=== PATIENT | male | born 1955 | race Caucasian/White ===

== ENCOUNTER 2025-01-26 10:37 | Observation (INO) ==
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
--- NOTE | 2025-01-26 11:50 | XRay Report ---
XR chest 1V portable CLINICAL HISTORY: stroke like symptoms COMPARISON STUDY: None FINDINGS: Heart size and pulmonary vasculature are normal. No effusion, consolidation, or pneumothora x. IMPRESSION: No acute findings. ACT 112: Negative or not required by law. Electronically signed by: Pancho Zamorano M.D. 01/26/2025 11:48 AM
[2025-01-26 12:14] LABS: Hematocrit (blood only) 42.3 % (42.0-52.0); Hemoglobin 14.4 g/dl (14.0-18.0); Mean Corpuscular Hemoglobin 29.3 pg (25.0-34.0); Mean Corpuscular Volume 86.2 fL (80.0-100.0); Mean Platelet Volume 9.7 fL (9.4-12.4); Platelet Count 251 K/uL (130-400); RDW Coefficient of Variation 12.5 % (11.5-14.5); RDW Standard Deviation 39.2 fL (36.4-46.3); Red Blood Count 4.91 M/uL (4.70-6.10); White Blood Count 6.22 K/ul (4.8-10.8)
[2025-01-26 12:20] LABS: Partial Thromboplastin Time 26 Seconds (21-31); Prothrombin Time 10.8 Seconds (9.0-12.0)
[2025-01-26 12:31] LABS: Albumin Level 3.9 gm/dl (3.4-5.0); Bilirubin,Total 0.4 mg/dl (0.2-1.0); Calcium 9.1 mg/dl (8.6-10.3); Magnesium 1.9 mg/dl (1.7-2.4); Potassium 3.7 mmol/L (3.5-5.1)
[2025-01-26 12:35] LABS: Troponin I High Sensitivity 2.7 pg/ml (0-20)
[2025-01-26 12:37] LABS: Albumin Globulin Ratio 1.1 (0.9-2); BUN Creatinine Ratio 16.5 (10-20); Creatinine Clr Calc Pharmacy 91.4 ml/min; Globulin 3.6 gm/dl (2.5-4.0); Total Protein 7.5 gm/dl (6.0-8.3)
[2025-01-26] MEDS: OPTIRAY 320 125ml IV ONE (12:40)
--- NOTE | 2025-01-26 13:05 | CT Scan Report ---
CT angio head w con CLINICAL HISTORY: stroke like symptoms. COMPARISON STUDY: None TECHNIQUE: Unenhanced axial CT scan of the brain is performed. Subsequently, following the IV adminis tration of 112 cc of Optiray, CT angiogram of the brain was performed from the skull base to the vert ex. Images are reviewed in the axial, sagittal, and coronal planes. 3-D MIPS images are created and a ssessed. IV contrast was administered without complication. All measurements were obtained according to NASCET criteria. A dose lowering technique was utilized adhering to the principles of ALARA. CT DOSE: 1243.01 mGy.cm FINDINGS: Distal aspect of the internal carotid and vertebral arteries are widely patent. Basilar art lan is widely patent. The anterior, middle, and posterior cerebral arteries are patent bilaterally. C erebral venous sinuses opacify normally. There is mild paranasal sinus mucosal thickening. IMPRESSION: No significant arterial narrowing or occlusion seen at the brain. ACT 112: Negative or not required by law. The above report was generated using voice recognition software. It may contain grammatical, syntax o r spelling errors. Electronically signed by: Pancho Zamorano M.D. 01/26/2025 1:03 PM
--- NOTE | 2025-01-26 13:05 | CT Scan Report ---
CT SCAN OF THE BRAIN WITHOUT IV CONTRAST CLINICAL HISTORY: Stroke like symptoms. COMPARISON STUDY: None. TECHNIQUE: Unenhanced axial CT scan of the brain was performed from the vertex to the skull base. A dose lowering technique was utilized adhering to the principles of ALARA. FINDINGS: No acute intracranial hemorrhage, midline shift or mass effect is present. Ventricular syst em is unremarkable. Basal cisterns are patent. There are no extra axial collections. White matter hyp odensities suggest small vessel disease. There are no findings to suggest acute dural sinus thrombosi s or acute territorial infarct. A few subcentimeter hypodensities within the bilateral basal ganglia are probably chronic. A right temporal craniotomy is noted. There is a right frontal jimbo hole. There are no calvarial fractures. Small air-fluid levels within the maxillary sinuses are present. There i s moderate ethmoid sinus mucosal thickening. IMPRESSION: No acute intracranial findings. ACT 112: Negative or not required by law. Electronically signed by: Jaun Smalls M.D. 01/26/2025 1:04 PM
--- NOTE | 2025-01-26 13:10 | CT Scan Report ---
CT angio neck with con CLINICAL HISTORY: stroke like symptoms. COMPARISON STUDY: None TECHNIQUE: Following the IV administration of 112 of Optiray, CT angiogram of the neck was performed from the aortic arch to the skull base. Images are reviewed in the axial, sagittal, and coronal plane s. 3-D MIPS images are created and assessed. IV contrast was administered without complication. All m easurements were calculated based on NASCET criteria. A dose lowering technique was utilized adherin g to the principles of ALARA. FINDINGS: Mixed calcified and noncalcified plaque at the right carotid bulb causes less than 50% narr owing proximal right internal carotid artery. No significant narrowing or occlusion seen at the commo n or internal carotid arteries bilaterally. No significant narrowing or occlusion seen at the vertebr al arteries bilaterally. There are moderate degenerative changes at the cervical spine. IMPRESSION: No significant arterial narrowing or occlusion seen at the neck. ACT 112: Negative or not required by law. The above report was generated using voice recognition software. It may contain grammatical, syntax o r spelling errors. Electronically signed by: Pancho Zamorano M.D. 01/26/2025 1:08 PM
[2025-01-26] MEDS: ALBUT/IPRATROP 3MG/0.5MG NEB 3 ML VIAL NEB STA (13:38)
--- NOTE | 2025-01-26 15:45 | History & Physical Report ---
Date of Service January 26, 2025 Assessment & Plan (1) Stroke-like symptom: (2) Closed head injury: Plan 69-year-old male with strokelike symptoms consisting of mild dysarthria and right facial drooping that are now resolving. Head CT scan on admission was negative for hemorrhage. Head and neck CTA are unremarkable. Brain MRI scan is pending. He has been acceptably hypertensive on admission but takes no current medications. Aspirin has been ordered # Strokelike symptoms admission head CT scan negative for bleeding. Brain MRI scan pending. Aspirin has been ordered. Head and neck CTA negative. Observation with telemetry. Supportive care # History of closed head injuries-occurred in the past. The patient stated he had a recent brain MRI scan done at an outside hospital. Those results are not available to me at this time. #Dispositionhopeful discharge tomorrow, January 27, on low-dose aspirin if brain MRI scan is negative for acute CVA and he is asymptomatic History of Present Illness Chief Complaint: Strokelike symptoms Primary Care Provider: Will Cruz 69-year-old white male with a past history of closed head injuries. His states he woke this morning, January 26, with mild dysarthria and what appeared to be a right facial droop. He came to our ED for evaluation since he was camping at [facility]. He is from out of town. Stat head CT scan was negative for bleeding. Head and neck CTA was negative for any obstruction. Blood pressure was slightly elevated on admission but acceptable and EKG is unremarkable with normal sinus rhythm. Brain brain MRI scan is ordered and pending. His symptoms are already resolving and he is alert and oriented at the time of my examination in no acute distress. His is at the bedside. He will be placed in observation status with telemetry for further monitoring Allergies Allergy/AdvReac Type Severity Reaction Status Date / Time red (food color) Allergy Severe Hives, Unverified 01/26/25 14:59 labored breathing, chest congestion red dye Allergy Severe Hives, Unverified 01/26/25 14:59 labored breathing, chest congestion Home Medications Medication Instructions Recorded Confirmed Type fluticasone furoate 200 1 inh inhalation QAM 01/26/25 01/26/25 History mcg-vilanterol 25 mcg/dose inhalation powder (Breo Ellipta) fluticasone propionate 50 1 spray intranasal BID PRN Allergy 01/26/25 01/26/25 History mcg/actuation nasal Symptoms spray,suspension loratadine 10 mg tablet (Claritin) 10 mg PO HS 01/26/25 01/26/25 History omeprazole 20 mg capsule,delayed 20 mg PO DAILYBB 01/26/25 01/26/25 History release pramipexole 0.25 mg tablet 0.5 mg PO HS 01/26/25 01/26/25 History Past Med/Surg History Problem List (Updated 01/26/25 @ 15:50 by Clive Chavez MD) Closed head injury Stroke-like symptom Social History Smoking Status: Never smoker Preferred Language: Maltese Feels Safe at Home: Yes Review of Systems 2 Review of Systems: Constitutionalno fever or chills ENTno blurred vision, no double vision, no epistaxis, no sore throat Respiratoryno cough, no wheezing, no shortness of breath Cardiacno palpitations, no chest pain, no syncope Ameya nausea, vomiting, diarrhea, melena, hematochezia GUno urinary retention, no urinary incontinence, no dysuria, no hematuria Musculoskeletalno joint pain, no muscle tenderness Skinno bruising, no rashes, no pruritus Neurono isolated weakness, no paresthesia. Mild dysarthria and mild right facial droop per Psychno depression, no anxiety Physical Exam 2 Physical Exam: General-alert and oriented x3, no fever, no chills HEENT-head atraumatic and normocephalic, pupils equal and reactive to light, extraocular muscles intact Neck-no lymphadenopathy or thyromegaly, trachea midline Chest-clear to auscultation. No rales, wheezing or rhonchi Cardiac-regular rate and rhythm, normal S1 and S2 Abdomen-normal bowel sounds, no hepatosplenomegaly Extremities-no cyanosis, clubbing, or edema Neuro-cranial nerves II through XII intact, motor and sensory function within normal limits, strength symmetrical with no apparent focal deficits. He continues to have very mild dysarthria however. No apparent facial droop however Psych-normal affect, normal mood Results & Data Results & Data Vital Signs (Past 12 Hours) Vital Signs Temp Pulse Pulse Resp BP BP Pulse Ox 01/26/25 15:00 78 19 163/100 H 97 01/26/25 13:37 70 15 187/144 H 97 01/26/25 11:28 75 01/26/25 11:24 73 12 95 01/26/25 11:24 95 01/26/25 11:08 98 01/26/25 10:42 81 16 153/98 H 98 01/26/25 10:42 98 01/26/25 10:42 36.7 C 81 16 153/98 H 97 O2 Del Method 01/26/25 15:00 Room Air 01/26/25 13:37 Room Air 01/26/25 11:28 01/26/25 11:24 Room Air 01/26/25 11:24 Room Air 01/26/25 11:08 Room Air 01/26/25 10:42 Room Air 01/26/25 10:42 Room Air 01/26/25 10:42 Room Air Laboratory Results 01/26/25 10:45 01/26/25 10:45 Code Status & VTE Plan Code Status Full code PG Care Time/CCT Total # of Minutes Spent Total Time Spent with Patient: Total time spent is greater than 50% in coordination of care (as documented) at patient's floor/unit and/or counseling patient: Coding Level of Care Code 51016 INT INP/OBS CARE 3/75MIN Diagnoses Stroke-like symptom R29.90 Closed head injury S09.90XA
[2025-01-26] MEDS: ASPIRIN CHEW 324 MG PO STA (16:19)
--- NOTE | 2025-01-26 17:45 | Magnetic Resonance Report ---
MRI BRAIN WITHOUT CONTRAST TECHNIQUE: An MRI examination of the brain was performed utilizing sagittal and axial T1-weighted images as well as axial T2-weighted, FLAIR, gradient echo and diffusion-weighted images. INDICATION: Stroke. Slurred speech. COMPARISON: No comparison examination is available for viewing in our system. FINDINGS: There are scattered acute to subacute infarct in the right MCA territory distribution involving the right insular cortex, right frontoparietal cortices. No significant mass effect or evidence of hemorrhagic transformation detected at this time. Advanced chronic white matter ischemic changes and chronic infarctions. Cerebral volume loss with expected ex-vacuo dilatation of the ventricles, basilar cisterns and prominent sulci. The cerebellar tonsils are normal in position. There is enlargement of the pituitary gland which measures up to 1.6 cm and craniocaudal dimension. No intraorbital soft tissue mass lesion is observed. There is a lesion versus a defect in the in the right frontal calvarium measuring 1.9 cm. It is poorly characterized on this examination. Left frontal scalp sebaceous versus inclusion cyst. Small fluid and mucosal thickening in the maxillary sinuses. Mucosal thickening of the other paranasal sinuses. Mastoids are aerated. IMPRESSION: Scattered acute to subacute infarcts in the right MCA territorial distribution involving the insular cortex and the frontoparietal cortices. No appreciable mass effect or evidence of hemorrhagic transformation at this time. Note of a lesion versus a defect in the in the right frontal calvarium measuring 1.9 cm. It is poorly characterized in this examination. Considerations may include a calvarial lesion or possibly previous bur hole creation. If indicated, further evaluation with contrast-enhanced MRI may be obtained. There is enlargement of the pituitary gland which measures up to 1.6 cm and craniocaudal dimension. This may be due to an underlying lesion such as a microadenoma or a Rathke's cleft cyst. Additional further evaluation with pituitary protocol MRI may be obtained Notification to clinician of alert: [facility] floor was notified about above findings by phone on January 26, 2025 at 5:42 PM by Fam Oakley MD. Readback confirmation was obtained. Electronically signed by Fam Oakley 01-26-2025 5:45 PM
[2025-01-26] MEDS ORDERED: ONDANSETRON INJ 2 MG/ML 2 ML VIAL IV PRN (17:59)
[2025-01-26] MEDS: CLOPIDOGREL BISULFATE 300 MG TAB PO STA (21:06)
[2025-01-26] MEDS: LORATADINE 10 MG TAB PO SCH (21:06)
[2025-01-26] MEDS: PRAMIPEXOLE DIHYDROCHLO 0.5 MG TAB PO SCH (21:10)
[2025-01-27] MEDS: PANTOprazole 40 MG TAB PO SCH (05:48)
[2025-01-27] MEDS: FLUTICASONE PROPIONATE NA SPR 16 GM BTL PRN (08:03)
[2025-01-27] MEDS: ASPIRIN 81 MG ECTAB PO SCH (08:03)
[2025-01-27] MEDS: FLUTICASONE/VILANTEROL 200/25MCG 14 PUFFS/INHALER INH SCH (08:04)
--- NOTE | 2025-01-27 09:30 | XCELERA ---
[id number]
--- NOTE | 2025-01-27 10:06 | Electrocardiogram Report ---
Test Reason : Blood Pressure : */* mmHG Vent. Rate : 87 BPM Atrial Rate : 87 BPM P-R Int : 168 ms QRS Dur : 84 ms QT Int : 368 ms P-R-T Axes : 48 -4 61 degrees QTcB Int : 442 ms Normal sinus rhythm Possible Inferior infarct , age undetermined Abnormal ECG No previous ECGs available Confirmed by Al Tavarez ([id number]) on 01/27/2025 10:05:51 AM Referred By: REFERRED SELF Confirmed By: Al Tavarez
--- NOTE | 2025-01-27 14:59 | Hospitalist Progress Note ---
Date of Service January 27, 2025 Assessment & Plan (1) Stroke-like symptom: (2) Closed head injury: Plan 69-year-old male with strokelike symptoms consisting of mild dysarthria and right facial drooping that are now resolving. Head CT scan on admission was negative for hemorrhage. Head and neck CTA are unremarkable. Brain MRI showed acute stroke.. # Right MCA distribution ischemic CVA CT head, CTA of the head and neck were unremarkable MRI brain showed right MCA distribution ischemic infarcts TTE negative Lipid panel ordered A1c ordered PT/OT consulted Neurology consulted Patient is on aspirin and statin (started this hospitalization) Awaiting input from neurology to see if the patient needs a JACINTO since multiple infarcts were seen (possibility of embolic phenomena?) Monitor on telemetry # History of closed head injuries -occurred in the past. The patient stated he had a recent brain MRI scan done at an outside hospital. Those results are not available to me at this time. MRI showed: Note of a lesion versus a defect in the in the right frontal calvarium measuring 1.9 cm. It is poorly characterized in this examination. Considerations may include a calvarial lesion or possibly previous bur hole creation. This may have been a result of his previous head injuries #Pituitary adenoma Noted on MRI Awaiting neurology input May need endocrinology referral Admission and Anticipated Discharge Date Admission Date: January 26, 2025 Subjective Patient feels well. Denies chest pain or shortness of breath. Accompanied by his at the bedside. Review of Systems Review of Systems: All systems reviewed & are unremarkable except as noted in Subjective Physical Exam Physical Exam: General: Awake, conversant Heart: S1, S2/regular rate and rhythm, no murmur rubs or gallops Lungs: Clear to auscultation bilaterally. Normal effort Abdomen: Soft/nontender/nondistended. No hepatosplenomegaly Extremities: No clubbing/cyanosis. No edema Behavior: Appropriate, cooperative Results & Data Results & Data Vital Signs (Past 12 Hours) Vital Signs Temp Pulse Pulse Resp BP Pulse Ox O2 Del Method 01/27/25 14:08 96 H 01/27/25 11:45 36.6 C 91 H 18 122/78 95 Room Air 01/27/25 08:27 36.8 C 69 18 148/82 H 93 Room Air 01/27/25 05:41 63 01/27/25 02:48 36.9 C 75 18 134/79 96 Room Air Diagnostic Findings Brain MRI 01/26/25 15:40 MRI BRAIN WITHOUT CONTRAST TECHNIQUE: An MRI examination of the brain was performed utilizing sagittal and axial T1-weighted images as well as axial T2-weighted, FLAIR, gradient echo and diffusion-weighted images. INDICATION: Stroke. Slurred speech. COMPARISON: No comparison examination is available for viewing in our system. FINDINGS: There are scattered acute to subacute infarct in the right MCA territory distribution involving the right insular cortex, right frontoparietal cortices. No significant mass effect or evidence of hemorrhagic transformation detected at this time. Advanced chronic white matter ischemic changes and chronic infarctions. Cerebral volume loss with expected ex-vacuo dilatation of the ventricles, basilar cisterns and prominent sulci. The cerebellar tonsils are normal in position. There is enlargement of the pituitary gland which measures up to 1.6 cm and craniocaudal dimension. No intraorbital soft tissue mass lesion is observed. There is a lesion versus a defect in the in the right frontal calvarium measuring 1.9 cm. It is poorly characterized on this examination. Left frontal scalp sebaceous versus inclusion cyst. Small fluid and mucosal thickening in the maxillary sinuses. Mucosal thickening of the other paranasal sinuses. Mastoids are aerated. IMPRESSION: Scattered acute to subacute infarcts in the right MCA territorial distribution involving the insular cortex and the frontoparietal cortices. No appreciable mass effect or evidence of hemorrhagic transformation at this time. Note of a lesion versus a defect in the in the right frontal calvarium measuring 1.9 cm. It is poorly characterized in this examination. Considerations may include a calvarial lesion or possibly previous bur hole creation. If indicated, further evaluation with contrast-enhanced MRI may be obtained. There is enlargement of the pituitary gland which measures up to 1.6 cm and craniocaudal dimension. This may be due to an underlying lesion such as a microadenoma or a Rathke's cleft cyst. Additional further evaluation with pituitary protocol MRI may be obtained Notification to clinician of alert: [facility] floor was notified about above findings by phone on January 26, 2025 at 5:42 PM by Fam Oakley MD. Readback confirmation was obtained. Electronically signed by Fam Oakley 01-26-2025 5:45 PM PG Care Time/CCT Total # of Minutes Spent Total Time Spent with Patient: Total time spent is greater than 50% in coordination of care (as documented) at patient's floor/unit and/or counseling patient: Coding Level of Care Code 14735 SUB INP/OBS CARE 2/35MIN Diagnoses Stroke-like symptom R29.90 Closed head injury S09.90XA
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
[2025-01-27] MEDS: DICLOFENAC SOD 1% GEL 100 GM TUBE EXT SCH (20:54)
[2025-01-28 07:45] VITALS: TEMP 97.5; O2SAT 96
[2025-01-28 08:11] LABS: Chol HDL Ratio 3.4 (0-5)
[2025-01-28 08:15] LABS: Estimated Average Glucose 120 mg/dl; Hemoglobin A1C 5.8 % (4.5-5.6)
[2025-01-28] MEDS: CLOPIDOGREL BISULFATE 75 MG TAB PO SCH (09:24)
[2025-01-28] MEDS: ATORVASTATIN 40 MG TAB PO SCH (09:25)
--- NOTE | 2025-01-28 11:47 | Discharge Summary ---
Date of Service January 28, 2025 Admission HPI Per Admitting Provider 69-year-old white male with a past history of closed head injuries. His states he woke this morning, January 26, with mild dysarthria and what appeared to be a right facial droop. He came to our ED for evaluation since he was camping at [facility]. He is from out of town. Stat head CT scan was negative for bleeding. Head and neck CTA was negative for any obstruction. Blood pressure was slightly elevated on admission but acceptable and EKG is unremarkable with normal sinus rhythm. Brain brain MRI scan is ordered and pending. His symptoms are already resolving and he is alert and oriented at the time of my examination in no acute distress. His is at the bedside. He will be placed in observation status with telemetry for further monitoring Admission Exam Per Admitting Provider General-alert and oriented x3, no fever, no chills HEENT-head atraumatic and normocephalic, pupils equal and reactive to light, e xtraocular muscles intact Neck-no lymphadenopathy or thyromegaly, trachea midline Chest-clear to auscultation. No rales, wheezing or rhonchi Cardiac-regular rate and rhythm, normal S1 and S2 Abdomen-normal bowel sounds, no hepatosplenomegaly Extremities-no cyanosis, clubbing, or edema Neuro-cranial nerves II through XII intact, motor and sensory function within normal limits, strength symmetrical with no apparent focal deficits. He continues to have very mild dysarthria however. No apparent facial droop however Psych-normal affect, normal mood Principal Diagnosis Acute right MCA distribution embolic stroke Pituitary mass Discharge Exam General: Awake, conversant Heart: S1, S2/regular rate and rhythm, no murmur rubs or gallops Lungs: Clear to auscultation bilaterally. Normal effort Abdomen: Soft/nontender/nondistended. No hepatosplenomegaly Extremities: No clubbing/cyanosis. No edema Behavior: Appropriate, cooperative Discharge Data Allergies Allergy/AdvReac Type Severity Reaction Status Date / Time red (food color) Allergy Severe Hives, Unverified 01/26/25 14:59 labored breathing, chest congestion red dye Allergy Severe Hives, Unverified 01/26/25 14:59 labored breathing, chest congestion Consultations 01/26/25 15:06 ED Decision to Admit Stat 01/26/25 19:08 Consult Neurology Routine Ordered Studies Chest X-Ray 01/26/25 11:18 XR chest 1V portable CLINICAL HISTORY: stroke like symptoms COMPARISON STUDY: None FINDINGS: Heart size and pulmonary vasculature are normal. No effusion, consolidation, or pneumothorax. IMPRESSION: No acute findings. ACT 112: Negative or not required by law. Electronically signed by: Pancho Zamorano M.D. 01/26/2025 11:[address] 01/26/25 11:18 CT SCAN OF THE BRAIN WITHOUT IV CONTRAST CLINICAL HISTORY: Stroke like symptoms. COMPARISON STUDY: None. TECHNIQUE: Unenhanced axial CT scan of the brain was performed from the vertex to the skull base. A dose lowering technique was utilized adhering to the principles of ALARA. FINDINGS: No acute intracranial hemorrhage, midline shift or mass effect is present. Ventricular system is unremarkable. Basal cisterns are patent. There are no extra axial collections. White matter hypodensities suggest small vessel disease. There are no findings to suggest acute dural sinus thrombosis or acute territorial infarct. A few subcentimeter hypodensities within the bilateral basal ganglia are probably chronic. A right temporal craniotomy is noted. There is a right frontal jimbo hole. There are no calvarial fractures. Small air-fluid levels within the maxillary sinuses are present. There is moderate ethmoid sinus mucosal thickening. IMPRESSION: No acute intracranial findings. ACT 112: Negative or not required by law. Electronically signed by: Jaun Smalls M.D. 01/26/2025 1:04 PM Head CTA 01/26/25 11:18 CT angio head w con CLINICAL HISTORY: stroke like symptoms. COMPARISON STUDY: None TECHNIQUE: Unenhanced axial CT scan of the brain is performed. Subsequently, following the IV administration of 112 cc of Optiray, CT angiogram of the brain was performed from the skull base to the vertex. Images are reviewed in the axial, sagittal, and coronal planes. 3-D MIPS images are created and assessed. IV contrast was administered without complication. All measurements were obtained according to NASCET criteria. A dose lowering technique was utilized adhering to the principles of ALARA. CT DOSE: 1243.01 mGy.cm FINDINGS: Distal aspect of the internal carotid and vertebral arteries are widely patent. Basilar artery is widely patent. The anterior, middle, and posterior cerebral arteries are patent bilaterally. Cerebral venous sinuses opacify normally. There is mild paranasal sinus mucosal thickening. IMPRESSION: No significant arterial narrowing or occlusion seen at the brain. ACT 112: Negative or not required by law. The above report was generated using voice recognition software. It may contain grammatical, syntax or spelling errors. Electronically signed by: Pancho Zamorano M.D. 01/26/2025 1:03 PM Neck CTA 01/26/25 11:18 CT angio neck with con CLINICAL HISTORY: stroke like symptoms. COMPARISON STUDY: None TECHNIQUE: Following the IV administration of 112 of Optiray, CT angiogram of the neck was performed from the aortic arch to the skull base. Images are reviewed in the axial, sagittal, and coronal planes. 3-D MIPS images are created and assessed. IV contrast was administered without complication. All measur ements were calculated based on NASCET criteria. A dose lowering technique was utilized adhering to the principles of ALARA. FINDINGS: Mixed calcified and noncalcified plaque at the right carotid bulb causes less than 50% narrowing proximal right internal carotid artery. No significant narrowing or occlusion seen at the common or internal carotid arteries bilaterally. No significant narrowing or occlusion seen at the vertebral arteries bilaterally. There are moderate degenerative changes at the cervical spine. IMPRESSION: No significant arterial narrowing or occlusion seen at the neck. ACT 112: Negative or not required by law. The above report was generated using voice recognition software. It may contain grammatical, syntax or spelling errors. Electronically signed by: Pancho Zamorano M.D. 01/26/2025 1:08 PM Brain MRI 01/26/25 15:40 MRI BRAIN WITHOUT CONTRAST TECHNIQUE: An MRI examination of the brain was performed utilizing sagittal and axial T1-weighted images as well as axial T2-weighted, FLAIR, gradient echo and diffusion-weighted images. INDICATION: Stroke. Slurred speech. COMPARISON: No comparison examination is available for viewing in our system. FINDINGS: There are scattered acute to subacute infarct in the right MCA territory distribution involving the right insular cortex, right frontoparietal cortices. No significant mass effect or evidence of hemorrhagic transformation detected at this time. Advanced chronic white matter ischemic changes and chronic infarctions. Cerebral volume loss with expected ex-vacuo dilatation of the ventricles, basilar cisterns and prominent sulci. The cerebellar tonsils are normal in position. There is enlargement of the pituitary gland which measures up to 1.6 cm and craniocaudal dimension. No intraorbital soft tissue mass lesion is observed. There is a lesion versus a defect in the in the right frontal calvarium measuring 1.9 cm. It is poorly characterized on this examination. Left frontal scalp sebaceous versus inclusion cyst. Small fluid and mucosal thickening in the maxillary sinuses. Mucosal thickening of the other paranasal sinuses. Mastoids are aerated. IMPRESSION: Scattered acute to subacute infarcts in the right MCA territorial distribution involving the insular cortex and the frontoparietal cortices. No appreciable mass effect or evidence of hemorrhagic transformation at this time. Note of a lesion versus a defect in the in the right frontal calvarium measuring 1.9 cm. It is poorly characterized in this examination. Considerations may include a calvarial lesion or possibly previous bur hole creation. If indicated, further evaluation with contrast-enhanced MRI may be obtained. There is enlargement of the pituitary gland which measures up to 1.6 cm and craniocaudal dimension. This may be due to an underlying lesion such as a microadenoma or a Rathke's cleft cyst. Additional further evaluation with pituitary protocol MRI may be obtained Notification to clinician of alert: [facility] floor was notified about above findings by phone on January 26, 2025 at 5:42 PM by Fam Oakley MD. Readback confirmation was obtained. Electronically signed by Fam Oakley 01-26-2025 5:45 PM 01/26/25 11:18 CT head/brain wo con Stat CTA head w con [CT angio head w con] Stat CTA neck with con [CT angio neck with con] Stat 01/26/25 15:40 MRI Brain [MR brain wo con] Urgent Hospital Course (1) Stroke-like symptom: (2) Closed head injury: Plan 69-year-old male with strokelike symptoms consisting of mild dysarthria and right facial drooping that are now resolving. Head CT scan on admission was negative for hemorrhage. Head and neck CTA are unremarkable. Brain MRI showed acute stroke.. # Right MCA distribution embolic strokes CT head, CTA of the head and neck were unremarkable MRI brain showed right MCA distribution ischemic infarcts TTE negative. No PFO Lipid panel reviewed A1c 5.8 PT/OT consulted. Recommended outpatient PT and OT. Prescription given. Neurology consulted. Recommends vascular surgery outpatient referral as the patient probably had embolic strokes from the right carotid artery. Patient and family informed. Patient will be discharged with a Holter monitor for a month. Patient is on aspirin and statin (started this hospitalization). Patient will be on Plavix for a total of 21 days. Deemed stable for discharge today # History of closed head injuries -occurred in the past. The patient stated he had a recent brain MRI scan done at an outside hospital. Those results are not available to me at this time. MRI showed: Note of a lesion versus a defect in the in the right frontal calvarium measuring 1.9 cm. It is poorly characterized in this examination. Considerations may include a calvarial lesion or possibly previous bur hole creation. This may have been a result of his previous head injuries #Pituitary adenoma Noted on MRI Will need endocrinology referral Total Time Total Time Spent Total Time Spent (In Minutes): 35 Discharge Plan Discharge Items Patient Disposition: Home - Self-Care Reason For Visit: ACUTE CVA Discharge Diagnosis: Acute right MCA distribution embolic strokes Pituitary mass Activity: As commented below Activity Comment: Per PT/OT recommendations Non-emergency contact: Primary Care Provider Call non-emergency contact if: you have any medication questions and your symptoms worsen Follow-up/Referrals: Will Cruz M.D. [Primary Care Provider] - (PLEASE CALL YOUR PRIMARY CARE PROVIDER TO SCHEDULE A HOSPITAL FOLLOW-UP APPOINTMENT WITHIN 7-10 DAYS) Diet: Heart Healthy Addtl Attending Provider Instructions: Advised to follow-up with PCP in 1 week Advised to note that you had embolic strokes to the right side of your brain. They could have come from your right carotid artery and thus you will need to see a vascular surgeon. They could have also originated from the heart due to an arrhythmia. You will thus be discharged with a Holter monitor. Advised that you will need to follow-up with vascular surgery. Vascular surgery office will call you with an appointment. You were found to have a pituitary mass on the MRI of the brain. You will need to follow-up with endocrinology for that. Advised to know that you are being discharged on 3 new medications: Aspirin, Lipitor, Plavix (he will take Plavix for only 20 days) Pending Studies at Discharge: No Stand-Alone Forms: My [facility] [employer] Medications and DC Order Prescriptions: New clopidogrel 75 mg Tablet 75 mg PO QAM 20 Days Qty: 20 0RF atorvastatin 40 mg Tablet 40 mg PO QAM 30 Days Qty: 30 0RF aspirin 81 mg Tablet,Delayed Release (Dr/Ec) 81 mg PO DAILY 30 Days Qty: 30 0RF Continued pramipexole 0.25 mg tablet 0.5 mg PO HS Rx Instructions: 1 hour before bedtime omeprazole 20 mg capsule,delayed release(DR/EC) 20 mg PO DAILYBB fluticasone propionate 50 mcg/actuation spray,suspension 1 spray INTRANASAL BID PRN (Reason: Allergy Symptoms) loratadine [Claritin] 10 mg Tablet 10 mg PO HS fluticasone furoate-vilanterol [Breo Ellipta] 200-25 mcg/dose blister with device 1 inh INHALATION QAM Discharge Orders: Discharge Order (Routine); Ordered 01/28/25 Ordered By: Garrett Rizo Admission Data Admit Date/Time: 01/26/25 19:08 Attending Provider: Garrett Rizo Admit Provider: Clive Chavez Primary Care Provider: Will Cruz Other Providers: Clive Chavez; Gómez Rouse; Grzegorz Multani; Nany Hernandez; Sera Modi; Chelsy Mcgrath; Adrian Pizarro
[2025-01-28 11:54] VITALS: BP 135/70; PULSE 65; RESP 12
== END 2025-01-28 13:23 | disposition home or self-care (01) | DRG 66 ==
LOC: ED 10:37 → 2N 10:37 → SUATTDRO 19:08